=== PATIENT | female | born 1955 | race Caucasian/White ===

== ENCOUNTER → 2022-03-11 | Day surgery (SDC) | payer MEDICARE, MEDICAID | END | disposition home or self-care (01) | LOC: RADANGIO 08:03 | PROVIDERS: ATTEND Podiatrist Foot & Ankle Surgery | DX: Z45.2 Encounter for adjustment and management of vascular access device (principal); Z79.899 Other long term (current) drug therapy; Z98.890 Other specified postprocedural states | CPT/HCPCS: 36573; C1725 ==

== ENCOUNTER 2022-10-05 08:11 | Day surgery (SDC) | payer MEDICARE, MEDICAID ==
[~2022-10-05] VITALS: Ht 170.2 cm; Wt 120.2 kg
[~2022-10-05 08:11] MED LIST: AMOX1TAB16 PO; ATOR40TA70 PO; CLOP-31 PO; EMPA25TA PO; HYDR25TA PO; LINA5TAB PO; LISI40TA13 PO
[2022-10-05] MEDS ORDERED: IODIXANOL 320MG/ML 100 ML BOTTLE IV ONE (09:39)
[2022-10-05] MEDS ORDERED: HEPARIN 1000 UNITS/ML 10ML ONE (09:39)
[2022-10-05] MEDS ORDERED: LIDOCAINE HCL 1% 20ML VIAL (Pyxis) INJ ONE (09:39)
[2022-10-05] MEDS ORDERED: FENTANYL CITRATE/PF 50MCG/ML 2ML VIAL ONE (10:03)
[2022-10-05] MEDS ORDERED: MIDAZOLAM HCL 2 MG/2 ML VIAL ONE (10:04)
[2022-10-05] MEDS ORDERED: ATROPINE SULFATE 1MG/10ML SYR ONE (10:05)
[2022-10-05] MEDS ORDERED: ATROPINE SULFATE 1MG/10ML SYR IV PRN (11:45)
[2022-10-05] MEDS ORDERED: ONDANSETRON HCL 4MG/2ML INJ IV PRN (11:45)
[2022-10-05] MEDS ORDERED: ACETAMINOPHEN 325MG TABLET PO PRN (11:45)
== END 2022-10-05 14:00 | disposition home or self-care (01) ==
LOC: CCL 08:11
PROVIDERS: ATTEND Specialist
DX: I65.22 Occlusion and stenosis of left carotid artery (principal); I10 Essential (primary) hypertension; E11.9 Type 2 diabetes mellitus without complications; E78.5 Hyperlipidemia, unspecified; Z79.82 Long term (current) use of aspirin; Z79.84 Long term (current) use of oral hypoglycemic drugs; Z98.890 Other specified postprocedural states; Z79.899 Other long term (current) drug therapy
CPT/HCPCS: 82962; 36222; J3010; Q9967; J1644 ×2; J3490; J2250; Z7610 ×6; J0461